=== PATIENT | male | born 1990 | race Caucasian/White ===

== ENCOUNTER → 2022-12-09 | Outpatient (CLI) | payer BC, SELFPAY ==
--- NOTE | 2022-12-09 16:13 | MRI_ITS ---
INDICATION: RADICULOPATHY,CERVICAL REGION EXAMINATION: MRI - MR Spine Cervical W/O Contrast TECHNIQUE: Multiplanar and multisequence MR images of the cervical spine were performed. IV Contrast Dosage and Agent: None. COMPARISON: None. FINDINGS: No acute abnormal bone marrow or soft tissue signal. No fracture or subluxation. Mild spondylotic degenerative changes. Degenerative disc disease throughout the cervical spine with decreased disc heights and multilevel disc protrusions. C2-C3: Unremarkable. C3-C4: Small broad posterior disc protrusion. Mild central canal stenosis. Mild bilateral neural foraminal narrowing. C4-C5: Small broad posterior disc protrusion. Mild central canal stenosis. Mild left neural foraminal narrowing. C5-C6: Broad posterior disc protrusion with moderate central canal stenosis. Severe right and moderate to severe left neural foraminal narrowing. C6-C7: Broad posterior disc protrusion with mild central canal stenosis. Moderate to severe bilateral neural foraminal narrowing. C7-T1: Unremarkable. CERVICAL SPINAL CORD: Unremarkable. CRANIOCERVICAL JUNCTION: Unremarkable. SOFT TISSUES: Unremarkable. MRI/Spine Cervical (Routine) IMPRESSION: Degenerative changes and disc protrusions with varying degrees of central canal stenosis and neural foraminal narrowing as described above. Electronically Signed: Josh Obregon DO at 5:51 EDT ,
== END | disposition home or self-care (01) ==
PROVIDERS: Visit Provider Chiropractor Orthopedic
DX: M99.01 Segmental and somatic dysfunction of cervical region (principal); M47.812 Spondylosis without myelopathy or radiculopathy, cervical region; M54.12 Radiculopathy, cervical region
CPT/HCPCS: 72141